=== PATIENT | female | born 2000 | race Hispanic/Latino ===

== ENCOUNTER 2024-02-07 15:39 | Emergency (ER) | payer OTHER, MEDICARE ==
[~2024-02-07] VITALS: Ht 154.9 cm; Wt 61.2 kg
[2024-02-07 16:15] VITALS: PULSE 88; RESP 18; TEMP 98.8; O2SAT 100
[2024-02-07] MEDS ORDERED: CIPROFLOX-DEXA7.5 ML LEFT EAR (16:32)
[2024-02-07] MEDS ORDERED: AMOX TR-K CLV1 EAC2 PO (16:32)
== END 2024-02-07 16:46 | disposition home or self-care (01) ==
LOC: ER 15:45
DX: H66.92 Otitis media, unspecified, left ear (principal); H60.92 Unspecified otitis externa, left ear
CPT/HCPCS: 99282